=== PATIENT | female | born 1990 | race Caucasian/White ===

== ENCOUNTER 2017-05-20 00:49 | Emergency (ER) | payer OTHER, SELFPAY ==
[~2017-05-20] VITALS: Ht 165.1 cm; Wt 66.0 kg
[2017-05-20 00:55] VITALS: BP 136/72
[2017-05-20] MEDS ORDERED: ZITHTAB PO (01:53)
[2017-05-20] MEDS ORDERED: GUAI100S7 PO (01:53)
[2017-05-20] MEDS ORDERED: IBUP-1022 PO (01:53)
[2017-05-20] MEDS ORDERED: ACETAMINOPHEN 325 MG TAB PO ONE (02:00)
[2017-05-20] MEDS ORDERED: IBUPROFEN 600 MG TAB PO ONE (02:00)
[2017-05-20] MEDS ORDERED: guaiFENesin SYRUP 200 MG/10 ML UDC PO ONE (02:00)
== END 2017-05-20 02:02 | disposition home or self-care (01) ==
LOC: M ED 00:49
DX: J06.9 Acute upper respiratory infection, unspecified (principal); H92.01 Otalgia, right ear; R51 Headache; F17.200 Nicotine dependence, unspecified, uncomplicated; Z88.2 Allergy status to sulfonamides

== ENCOUNTER 2018-12-09 20:37 | Emergency (ER) | payer OTHER ==
[~2018-12-09] VITALS: Ht 162.6 cm; Wt 93.5 kg
[2018-12-09 20:37] VITALS: BP 132/77
[~2018-12-09 20:37] MED LIST: GUAI100L6 PO; IBUP-1022 PO; ZITHTAB PO
[2018-12-09] MEDS ORDERED: AUGM875T28 PO (22:03)
[2018-12-09] MEDS ORDERED: AUGMENTIN 875 MG TAB PO ONE (22:15)
== END 2018-12-09 22:10 | disposition home or self-care (01) ==
LOC: M ED 20:37
DX: H66.002 Acute suppurative otitis media without spontaneous rupture of ear drum, left ear (principal); Z88.2 Allergy status to sulfonamides; F17.210 Nicotine dependence, cigarettes, uncomplicated

== ENCOUNTER 2019-09-28 11:35 | Emergency (ER) | payer OTHER ==
[~2019-09-28] VITALS: Ht 160 cm; Wt 87.9 kg
[~2019-09-28 11:35] MED LIST changes: +AUGM875T28 PO
[2019-09-28] MEDS ORDERED: TRAZ-252 (11:42)
[2019-09-28] MEDS ORDERED: BUPR150T3 (11:42)
[2019-09-28] MEDS ORDERED: ALL10TAB29 (11:42)
[2019-09-28 12:08] LABS: BASO # 0.1 10^3/uL (0.0-0.2); BASO % 0.6 % (0.0-1.0); EOS # 0.2 10^3/uL (0.0-0.5); EOS % 2.2 % (0.0-3.0); HEMATOCRIT 42.1 % (36.0-47.0); HEMOGLOBIN 13.6 g/dl (12.0-15.5); LYMPH # 2.9 10^3/uL (1.5-5.0); LYMPH % 33.6 % (24.0-44.0); MEAN CORPUSCULAR HEMOGLOBIN 31.4 pg (27.0-33.0); MEAN CORPUSCULAR HGB CONC 32.3 g/dl (32.0-36.5); MEAN CORPUSCULAR VOLUME 97.2 fl (80.0-96.0); MONO # 0.8 10^3/uL (0.0-0.8); MONO % 9.8 % (0.0-5.0); NEUTROPHILS # 4.6 10^3/uL (1.5-8.5); NEUTROPHILS % 53.6 % (36.0-66.0); PLATELET COUNT, AUTOMATED 272 10^3/uL (150-450); RED BLOOD COUNT 4.33 10^6/uL (4.00-5.40); WHITE BLOOD COUNT 8.5 10^3/uL (4.0-10.0)
[2019-09-28 12:38] LABS: ALBUMIN 3.7 GM/DL (3.2-5.2); ALT/SGPT 16 U/L (12-78); BILIRUBIN,DIRECT 0.1 MG/DL (0.0-0.2); BILIRUBIN,TOTAL 0.2 MG/DL (0.2-1.0); BLOOD UREA NITROGEN 14 MG/DL (7-18); CALCIUM LEVEL 8.9 MG/DL (8.5-10.1); CARBON DIOXIDE LEVEL 27 MEQ/L (21-32); CHLORIDE LEVEL 108 MEQ/L (98-107); CREATININE FOR GFR 0.77 MG/DL (0.55-1.30); GLOMERULAR FILTRATION RATE > 60.0 (>60); GLUCOSE, FASTING 98 MG/DL (70-100); LIPASE 161 U/L (73-393); POTASSIUM SERUM 4.3 MEQ/L (3.5-5.1); SODIUM LEVEL 141 MEQ/L (136-145); TOTAL PROTEIN 6.7 GM/DL (6.4-8.2)
[2019-09-28] MEDS ORDERED: IBUPROFEN 800 MG TAB PO ONE (14:15)
[2019-09-28 16:25] VITALS: BP 156/81
--- NOTE | 2019-09-28 17:48 | REP ---
PELVIC ULTRASOUND: Real-time sonographic evaluation of the pelvis was performed utilizing transabdominal and endovaginal technique. The bladder measures 4.2 x 2.7 x 4.9 cm. The uterus measures 8.1 x 3.6 x 5.1 cm. Endometrial thickness is 3 mm. There is no endometrial fluid collection. IUD is seen in the endometrial canal. Right ovary measures 3.1 x 1.8 x 2.2 cm and left ovary 4.1 x 3.0 x 3.7 cm. Two dominant follicles in the left ovary measure up to 1.9 cm maximally. There is no torsion of either ovary with duplex Doppler evaluation. No free fluid is seen. IMPRESSION: IUD is seen in the endometrial canal. Right ovary is normal. Left ovary contains two dominant follicles 1.9 cm in maximum diameter. No torsion or free fluid. Electronically Signed by Jerome Gregory MD 09/28/2019 07:24 P
== END 2019-09-28 16:26 | disposition home or self-care (01) ==
LOC: M ED 12:54
DX: N83.02 Follicular cyst of left ovary (principal); R11.0 Nausea; F41.9 Anxiety disorder, unspecified; F32.9 Major depressive disorder, single episode, unspecified; F15.10 Other stimulant abuse, uncomplicated; Z87.442 Personal history of urinary calculi; F17.200 Nicotine dependence, unspecified, uncomplicated; Z97.5 Presence of (intrauterine) contraceptive device; Z88.2 Allergy status to sulfonamides; Z79.899 Other long term (current) drug therapy

== ENCOUNTER 2020-02-02 11:09 | Emergency (ER) | payer OTHER ==
[~2020-02-02] VITALS: Ht 162.6 cm; Wt 84.1 kg
[~2020-02-02 11:09] MED LIST changes: +ALL10TAB29; +BUPR150T3; +TRAZ-252
[2020-02-02] MEDS ORDERED: IBUPROFEN 600 MG TAB PO ONE (12:45)
[2020-02-02 12:52] VITALS: BP 161/86
--- NOTE | 2020-02-02 13:48 | REP ---
LEFT KNEE, FIVE VIEWS: There is no evidence of an acute fracture, dislocation, or intrinsic bone disease. IMPRESSION: No fracture or dislocation. Electronically Signed by Jerome Gregory MD 02/02/2020 04:44 P
--- NOTE | 2020-02-02 13:48 | REP ---
REASON: Trauma. Limited plain film examination of the mandible shows no gross fracture. IMPRESSION: Negative limited plain film exam. CT is more sensitive and should be considered. Electronically Signed by Chris Mullins DO 02/02/2020 01:53 P
== END 2020-02-02 12:53 | disposition home or self-care (01) ==
LOC: EDBD 11:09 → M ED 11:09
DX: S00.81XA Abrasion of other part of head, initial encounter (principal); S80.812A Abrasion, left lower leg, initial encounter; V13.4XXA Pedal cycle driver injured in collision with car, pick-up truck or van in traffic accident, initial encounter; Y92.89 Other specified places as the place of occurrence of the external cause; Z87.891 Personal history of nicotine dependence; Z88.2 Allergy status to sulfonamides

== ENCOUNTER → 2020-03-21 | Outpatient (REF) | payer OTHER ==
[~2020-03-21] MED LIST changes: +ALL10TAB2 PO; -ALL10TAB29; +BUPR1TAB53 PO; +CETI-24; +FLUT1INH INH; +SUMA50TA2 PO; +TRAZ1TAB14 PO
[2020-03-21 11:52] LABS: BASO # 0.1 10^3/uL (0.0-0.2); BASO % 0.7 % (0.0-1.0); EOS # 0.1 10^3/uL (0.0-0.5); EOS % 1.1 % (0.0-3.0); HEMATOCRIT 43.7 % (36.0-47.0); HEMOGLOBIN 14.3 g/dl (12.0-15.5); LYMPH # 2.4 10^3/uL (1.5-5.0); LYMPH % 29.2 % (24.0-44.0); MEAN CORPUSCULAR HEMOGLOBIN 31.2 pg (27.0-33.0); MEAN CORPUSCULAR HGB CONC 32.7 g/dl (32.0-36.5); MEAN CORPUSCULAR VOLUME 95.4 fl (80.0-96.0); MONO # 0.7 10^3/uL (0.0-0.8); MONO % 8.5 % (0.0-5.0); NEUTROPHILS # 4.9 10^3/uL (1.5-8.5); NEUTROPHILS % 60.3 % (36.0-66.0); PLATELET COUNT, AUTOMATED 277 10^3/uL (150-450); RED BLOOD COUNT 4.58 10^6/uL (4.00-5.40); WHITE BLOOD COUNT 8.2 10^3/uL (4.0-10.0)
[2020-03-21 12:53] LABS: ALBUMIN 3.9 GM/DL (3.2-5.2); ALT/SGPT 24 U/L (12-78); BILIRUBIN,TOTAL 0.3 MG/DL (0.2-1.0); BLOOD UREA NITROGEN 10 MG/DL (7-18); CALCIUM LEVEL 8.9 MG/DL (8.5-10.1); CARBON DIOXIDE LEVEL 27 MEQ/L (21-32); CHLORIDE LEVEL 107 MEQ/L (98-107); CHOLESTEROL LEVEL 147 MG/DL (<200); GLOMERULAR FILTRATION RATE > 60.0 (>60); GLUCOSE, FASTING 95 MG/DL (70-100); HDL CHOLESTEROL 50 MG/DL (>40); LDL CHOLESTEROL 84 MG/DL (<100); NON-HDL-C 97 MG/DL; POTASSIUM SERUM 4.9 MEQ/L (3.5-5.1); SODIUM LEVEL 138 MEQ/L (136-145); THYROID STIMULATING HORMONE 0.671 uIU/ML (0.358-3.740); TOTAL PROTEIN 7.5 GM/DL (6.4-8.2); TRIGLYCERIDES LEVEL 66 MG/DL (<150)
[2020-03-21 19:01] LABS: HEMOGLOBIN A1c 6.1 %
== END ==
LOC: M SFHCPLAZ 10:00
PROVIDERS: ATTEND Physician Assistant Medical
DX: E66.01 Morbid (severe) obesity due to excess calories (principal); Z87.891 Personal history of nicotine dependence; J45.30 Mild persistent asthma, uncomplicated; Z13.220 Encounter for screening for lipoid disorders

== ENCOUNTER → 2020-04-18 | Outpatient (REF) | payer OTHER ==
[~2020-04-18] MED LIST changes: +ALL10TAB29; -CETI-24
[2020-05-15 13:47] LABS: APPEARANCE, URINE CLEAR (CLEAR); BACTERIA, URINE AUTO NEGATIVE (NEGATIVE); BILIRUBIN, URINE AUTO NEGATIVE (NEGATIVE); BLOOD, URINE BLOOD NEGATIVE (NEGATIVE); COLOR, URINE STRAW (YELLOW); GLUCOSE, URINE (UA) AUTO NEGATIVE (NEGATIVE); KETONE, URINE AUTO NEGATIVE (NEGATIVE); LEUKOCYTE ESTERASE, URINE AUTO NEGATIVE (NEGATIVE); NITRITE, URINE AUTO NEGATIVE (NEGATIVE); PROTEIN, URINE AUTO NEGATIVE (NEGATIVE); RBC, URINE AUTO 1 /HPF (0-3); SQUAMOUS EPITHELIAL CELL UR AU 0 /HPF (0-6); UROBILINOGEN, URINE AUTO 0.2 mg/dL (0.0-2.0); WBC, URINE AUTO 2 /HPF (0-3)
[2020-05-15 20:21] LABS: BASO # 0.1 10^3/uL (0.0-0.2); BASO % 0.6 % (0.0-1.0); EOS # 0.1 10^3/uL (0.0-0.5); HEMATOCRIT 39.5 % (36.0-47.0); HEMOGLOBIN 13.1 g/dl (12.0-15.5); LYMPH # 2.7 10^3/uL (1.5-5.0); MEAN CORPUSCULAR HEMOGLOBIN 31.2 pg (27.0-33.0); MEAN CORPUSCULAR HGB CONC 33.2 g/dl (32.0-36.5); MONO # 0.9 10^3/uL (0.0-0.8); MONO % 8.8 % (0.0-5.0); NEUTROPHILS # 6.2 10^3/uL (1.5-8.5); NEUTROPHILS % 62.2 % (36.0-66.0); PLATELET COUNT, AUTOMATED 237 10^3/uL (150-450); WHITE BLOOD COUNT 9.9 10^3/uL (4.0-10.0)
== END ==
LOC: M SFHCPLAZ 12:32
PROVIDERS: ATTEND Physician Assistant Medical
DX: Z00.00 Encounter for general adult medical examination without abnormal findings (principal)

== ENCOUNTER 2020-05-08 11:52 | Day surgery (SDC) | payer OTHER ==
[~2020-05-08] VITALS: Ht 165.1 cm; Wt 100.2 kg
[~2020-05-08 11:52] MED LIST changes: -ALL10TAB29; +CETI-24
[2020-05-08] MEDS ORDERED: LIDOCAINE 2% 100MG/5ML SDV (FOR ANES.) As Ordered ONE (14:05)
[2020-05-08] MEDS ORDERED: propofoL 200 MG/20 ML VIAL As Ordered ONE ×2 (14:05→14:07)
[2020-05-08 14:53] VITALS: BP 132/60
--- NOTE | 2020-05-24 11:30 | ROOR ---
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 Procedure: Pre-Anesthesia Assessment: - The heart rate, respiratory rate, oxygen saturations, blood pressure, adequacy of pulmonary ventilation, and response to care were monitored throughout the procedure. The Colonoscope was introduced through the anus and advanced to the terminal ileum. The colonoscopy was performed without difficulty. The patient tolerated the procedure well. The quality of the bowel preparation was excellent. Findings: The perianal and digital rectal examinations were normal. Non-bleeding internal hemorrhoids were found during retroflexion. The hemorrhoids were small and Grade I (internal hemorrhoids that do not prolapse). No other significant abnormalities were identified in a careful examination of the remainder of the colon. The terminal ileum appeared normal. Biopsies for histology were taken with a cold forceps from the ascending colon, transverse colon and descending colon for evaluation of microscopic colitis. The exam was otherwise without abnormality. Impression: - Non-bleeding internal hemorrhoids. - The examined portion of the ileum was normal. - The examination was otherwise normal. - Biopsies were taken with a cold forceps from the ascending colon, transverse colon and descending colon for evaluation of microscopic colitis. - The exam was otherwise normal to the cecum. Recommendation: - Patient has a contact number available for emergencies. The signs and symptoms of potential delayed complications were discussed with the patient. Return to normal activities tomorrow. Written discharge instructions were provided to the patient. - High fiber diet. - Discharge patient to home. - Continue present medications. - Await pathology results. - Telephone GI clinic for pathology results in 1 week. - Repeat colonoscopy at age 52 for screening purposes. - Return to referring physician. - The findings and recommendations were discussed with the patient. Jacob Peña MD Jacob Peña MD 05/08/2020 2:20:32 PM Number of Addenda: 0 Note Initiated On: 05/08/2020 12:20 PM Estimated Blood Loss: Estimated blood loss: none.
== END 2020-05-08 14:54 | disposition home or self-care (01) ==
LOC: M OPP 11:52
PROVIDERS: ATTEND Internal Medicine Gastroenterology
DX: K64.0 First degree hemorrhoids (principal); R10.30 Lower abdominal pain, unspecified; R19.7 Diarrhea, unspecified; K62.5 Hemorrhage of anus and rectum; K21.9 Gastro-esophageal reflux disease without esophagitis; Z79.899 Other long term (current) drug therapy; Z88.2 Allergy status to sulfonamides; Z91.040 Latex allergy status; Z87.891 Personal history of nicotine dependence

== ENCOUNTER 2021-09-23 10:40 | Observation (INO) | payer OTHER ==
[~2021-09-23] VITALS: Ht 165.1 cm; Wt 89.5 kg
[~2021-09-23 10:40] MED LIST changes: +BUPR150T12; -BUPR150T3
[2021-09-23] MEDS ORDERED: NS 1,000 ML IV SCH (13:00)
[2021-09-23] MEDS ORDERED: ACETAMINOPHEN 500 MG TAB PO ONE (13:10)
[2021-09-23] MEDS ORDERED: LIDOCAINE 1% MDV 20ML VIAL IM ONE (13:40)
[2021-09-23] MEDS ORDERED: PIPERACILLIN/TAZOBACTAM SOD 3.375 GM in D5W MINI-BAG PLUS 50 ML IV ONE (14:20)
[2021-09-23 14:37] LABS: BASO # 0.1 10^3/uL (0.0-0.2); BASO % 0.5 % (0.0-1.0); EOS % 0.3 % (0.0-3.0); HEMOGLOBIN 12.6 g/dl (12.0-15.5); LYMPH # 2.1 10^3/uL (1.5-5.0); LYMPH % 17.9 % (24.0-44.0); MEAN CORPUSCULAR HGB CONC 34.1 g/dl (32.0-36.5); MEAN CORPUSCULAR VOLUME 90.9 fl (80.0-96.0); MONO # 0.7 10^3/uL (0.0-0.8); MONO % 6.1 % (2.0-8.0); NEUTROPHILS # 8.7 10^3/uL (1.5-8.5); NEUTROPHILS % 74.7 % (36.0-66.0); PLATELET COUNT, AUTOMATED 362 10^3/uL (150-450); RED BLOOD COUNT 4.07 10^6/uL (4.00-5.40); WHITE BLOOD COUNT 11.6 10^3/uL (4.0-10.0)
[2021-09-23 14:52] LABS: RSV AMPLIFICATION NEGATIVE (NEGATIVE)
[2021-09-23 15:21] LABS: ALBUMIN 3.4 GM/DL (3.2-5.2); ALT/SGPT 19 U/L (12-78); BILIRUBIN,DIRECT 0.1 MG/DL (0.0-0.2); BILIRUBIN,TOTAL 0.4 MG/DL (0.2-1.0); BLOOD UREA NITROGEN 6 MG/DL (7-18); CALCIUM LEVEL 8.9 MG/DL (8.5-10.1); CARBON DIOXIDE LEVEL 24 MEQ/L (21-32); CHLORIDE LEVEL 105 MEQ/L (98-107); CREATININE FOR GFR 0.62 MG/DL (0.55-1.30); GLOMERULAR FILTRATION RATE > 60.0 (>60); GLUCOSE, FASTING 86 MG/DL (70-100); HCG, SERUM QUANTITATIVE 48482 MIU/ML; POTASSIUM SERUM 4.2 MEQ/L (3.5-5.1); SODIUM LEVEL 137 MEQ/L (136-145); TOTAL PROTEIN 7.4 GM/DL (6.4-8.2)
[2021-09-23] MEDS ORDERED: HOME MED LIST COMPLETE! XX SCH (15:45)
[2021-09-23] MEDS ORDERED: ONDANSETRON 4MG/2ML VIAL IV ONE (16:35)
[2021-09-23] MEDS ORDERED: MORPHINE 2 MG/ML 1ML VIAL (J2270) IV ONE (16:35)
[2021-09-23] MEDS ORDERED: ALBUTEROL 90 MCG/ACT 8GM HFA INHALER INH PRN (17:05)
[2021-09-23 18:44] VITALS: BP 154/55
[2021-09-23] MEDS: ACETAMINOPHEN TAB 650MG DOSE (2X325MG) PO PRN ×2 (18:50→22:50)
[2021-09-23] MEDS: ceFAZolin SOD 1 GM in D5W MINI-BAG PLUS 50 ML IV SCH (21:13)
[2021-09-23 22:44] VITALS: BP 123/84
[2021-09-24 02:00] VITALS: BP 99/61
[2021-09-24] MEDS: ceFAZolin SOD 1 GM in D5W MINI-BAG PLUS 50 ML IV SCH ×3 (05:49→21:37)
[2021-09-24 06:00] VITALS: BP 116/70
[2021-09-24 06:14] LABS: HEMATOCRIT 33.9 % (36.0-47.0); HEMOGLOBIN 11.4 g/dl (12.0-15.5); MEAN CORPUSCULAR HEMOGLOBIN 30.8 pg (27.0-33.0); MEAN CORPUSCULAR HGB CONC 33.6 g/dl (32.0-36.5); MEAN CORPUSCULAR VOLUME 91.6 fl (80.0-96.0); PLATELET COUNT, AUTOMATED 332 10^3/uL (150-450); WHITE BLOOD COUNT 9.2 10^3/uL (4.0-10.0)
[2021-09-24 06:29] LABS: BLOOD UREA NITROGEN 8 MG/DL (7-18); CALCIUM LEVEL 8.3 MG/DL (8.5-10.1); CARBON DIOXIDE LEVEL 24 MEQ/L (21-32); CHLORIDE LEVEL 108 MEQ/L (98-107); CREATININE FOR GFR 0.56 MG/DL (0.55-1.30); GLOMERULAR FILTRATION RATE > 60.0 (>60); GLUCOSE, FASTING 90 MG/DL (70-100); POTASSIUM SERUM 3.7 MEQ/L (3.5-5.1); SODIUM LEVEL 140 MEQ/L (136-145)
[2021-09-24 10:00] VITALS: BP 118/71
[2021-09-24] MEDS: ACETAMINOPHEN TAB 650MG DOSE (2X325MG) PO PRN ×2 (12:22→19:33)
[2021-09-24 14:00] VITALS: BP 118/70
[2021-09-24 18:00] VITALS: BP 115/67
[2021-09-24] MEDS ORDERED: ONDANSETRON 4 MG ORAL DISINTEGRATING TAB PO PRN (19:50)
[2021-09-24 22:00] VITALS: BP 133/85
[2021-09-25 02:00] VITALS: BP 113/68
[2021-09-25] MEDS: ceFAZolin SOD 1 GM in D5W MINI-BAG PLUS 50 ML IV SCH (05:50)
[2021-09-25 06:00] VITALS: BP 111/66
[2021-09-25] MEDS: ACETAMINOPHEN TAB 650MG DOSE (2X325MG) PO PRN ×2 (06:00→10:44)
[2021-09-25 06:48] LABS: HEMATOCRIT 35.8 % (36.0-47.0); HEMOGLOBIN 12.1 g/dl (12.0-15.5); MEAN CORPUSCULAR HEMOGLOBIN 30.6 pg (27.0-33.0); MEAN CORPUSCULAR HGB CONC 33.8 g/dl (32.0-36.5); MEAN CORPUSCULAR VOLUME 90.6 fl (80.0-96.0); PLATELET COUNT, AUTOMATED 337 10^3/uL (150-450); RED BLOOD COUNT 3.95 10^6/uL (4.00-5.40); WHITE BLOOD COUNT 8.6 10^3/uL (4.0-10.0)
[2021-09-25 07:05] LABS: BLOOD UREA NITROGEN 7 MG/DL (7-18); CALCIUM LEVEL 8.8 MG/DL (8.5-10.1); CARBON DIOXIDE LEVEL 24 MEQ/L (21-32); CHLORIDE LEVEL 106 MEQ/L (98-107); CREATININE FOR GFR 0.58 MG/DL (0.55-1.30); GLOMERULAR FILTRATION RATE > 60.0 (>60); GLUCOSE, FASTING 101 MG/DL (70-100); POTASSIUM SERUM 3.9 MEQ/L (3.5-5.1); SODIUM LEVEL 139 MEQ/L (136-145)
[2021-09-25] MEDS ORDERED: CLIN150C17 PO (09:47)
[2021-09-25] MEDS ORDERED: MULTTAB20 PO (09:48)
== END 2021-09-25 11:53 | disposition home or self-care (01) ==
LOC: M ED 10:40 → M ED INP 10:41 → ENRESERV 17:15 → M MSPAV 18:14
PROVIDERS: ADMIT Family Medicine; ATTEND Internal Medicine
DX: N61.0 Mastitis without abscess (principal); A49.01 Methicillin susceptible Staphylococcus aureus infection, unspecified site; Z33.1 Pregnant state, incidental; J45.909 Unspecified asthma, uncomplicated; F31.9 Bipolar disorder, unspecified; F15.21 Other stimulant dependence, in remission; Z79.2 Long term (current) use of antibiotics; Z91.040 Latex allergy status; Z88.2 Allergy status to sulfonamides; Z87.891 Personal history of nicotine dependence
CPT/HCPCS: 36415; 76642; 80048; 80076; 83605; 84702; 85025; 85027; 87040; 87070; 87077; 87186; 87205; 87631; 96365; 96366; 96375; 96376; 99284; J0690; J2270; J2405; J2543; Q0162

== ENCOUNTER → 2022-05-02 | Outpatient (CLI) | payer MEDICAID ==
[~2022-05-02] MED LIST changes: +CLIN150C17 PO; +MULTTAB20 PO
== END ==
LOC: M OUTALCOH 07:24
PROVIDERS: ATTEND Psychiatry & Neurology Psychiatry
DX: Z13.39 Encounter for screening examination for other mental health and behavioral disorders (principal)

== ENCOUNTER 2022-06-13 09:00 | Outpatient (RCR) | payer MEDICAID | END 2022-06-14 | LOC: M OUTALCOH 09:00 | PROVIDERS: ATTEND Psychiatry & Neurology Psychiatry | DX: F12.10 Cannabis abuse, uncomplicated (principal); Z72.0 Tobacco use ==

== ENCOUNTER 2022-12-07 12:33 | Inpatient (IN) | payer MEDICAID, OTHER ==
[~2022-12-07] VITALS: Ht 165.1 cm; Wt 74.3 kg
[2022-12-07] MEDS ORDERED: ONDANSETRON 4MG 2ML VIAL IV ONE (13:25)
[2022-12-07] MEDS ORDERED: MORPHINE 4 MG/ML 1ML VIAL IV PRN (13:25)
[2022-12-07] MEDS ORDERED: LIDOCAINE 1% MDV 20ML VIAL IM ONE (13:25)
[2022-12-07 14:39] LABS: RSV AMPLIFICATION NEGATIVE (NEGATIVE)
[2022-12-07] MEDS ORDERED: VANCOMYCIN HCL 1,000 MG, VIAL MATE ADAPTER 1 EACH in NS 250 ML IV STA (14:48)
[2022-12-07] MEDS ORDERED: ACET-897 PO ×2 (14:56→17:57)
[2022-12-07] MEDS ORDERED: CLIN150C17 PO (14:56)
[2022-12-07] MEDS ORDERED: IBUP80TA PO (14:56)
[2022-12-07] MEDS ORDERED: NS 1,000 ML IV ONE (15:45)
[2022-12-07 15:56] LABS: BASO % 0.6 % (0.0-1.0); EOS # 0.1 10^3/uL (0.0-0.5); EOS % 0.9 % (0.0-3.0); HEMOGLOBIN 11.5 g/dl (12.0-15.5); LYMPH % 28.4 % (24.0-44.0); MEAN CORPUSCULAR HEMOGLOBIN 28.5 pg (27.0-33.0); MEAN CORPUSCULAR HGB CONC 32.9 g/dl (32.0-36.5); MEAN CORPUSCULAR VOLUME 86.6 fl (80.0-96.0); MONO # 0.4 10^3/uL (0.0-0.8); MONO % 6.1 % (2.0-8.0); NEUTROPHILS # 4.5 10^3/uL (1.5-8.5); NEUTROPHILS % 63.7 % (36.0-66.0); PLATELET COUNT, AUTOMATED 353 10^3/uL (150-450); RED BLOOD COUNT 4.04 10^6/uL (4.00-5.40)
[2022-12-07 16:17] LABS: ALBUMIN 3.2 G/DL (3.2-5.2); ALKALINE PHOSPHATASE 90 U/L (46-116); ALT/SGPT 18 U/L (7.0-40); AST/SGOT 15 U/L (<34); BILIRUBIN,TOTAL 0.4 MG/DL (0.3-1.2); BLOOD UREA NITROGEN 10 MG/DL (9-23); CALCIUM LEVEL 8.5 MG/DL (8.5-10.1); CARBON DIOXIDE LEVEL 27 MMOL/L (20-31); CHLORIDE LEVEL 105 MMOL/L (98-107); CREATININE FOR GFR 0.43 MG/DL (0.55-1.30); GLOMERULAR FILTRATION RATE > 60.0 (>60); GLUCOSE, FASTING 114 MG/DL (60-100); POTASSIUM SERUM 4.4 MMOL/L (3.5-5.1); SODIUM LEVEL 138 MMOL/L (136-145); TOTAL PROTEIN 6.2 G/DL (5.7-8.2)
[2022-12-07 16:25] LABS: ERYTHROCYTE SEDIMENTATION RATE 56 mm/hr (0-20)
[2022-12-07 16:43] LABS: HCG, SERUM QUALITATIVE NEGATIVE (NEGATIVE)
[2022-12-07] MEDS ORDERED: MORPHINE 2 MG/ML 1ML VIAL IV PRN (17:15)
[2022-12-07] MEDS ORDERED: BUPR1FIL SL (17:57)
[2022-12-07] MEDS ORDERED: VITMTA PO (17:57)
[2022-12-07] MEDS ORDERED: IBUP200C25 PO (17:57)
[2022-12-07] MEDS ORDERED: HOME MED LIST COMPLETE! XX SCH (18:00)
[2022-12-07] MEDS ORDERED: ONDANSETRON 4MG 2ML VIAL IV PRN (18:10)
[2022-12-07] MEDS: PIPERACILLIN/TAZOBACTAM SOD 3.375 GM in D5W MINI-BAG PLUS 50 ML IV SCH ×2 (18:43→23:44)
[2022-12-07] MEDS: LACTOBACILLUS ACIDOPHILUS CAP (BACID) PO SCH (20:30)
[2022-12-07] MEDS: NS 1,000 ML IV SCH (20:31)
[2022-12-07] MEDS: VANCOMYCIN HCL 1,000 MG, VIAL MATE ADAPTER 1 EACH in NS 250 ML IV SCH (21:48)
[2022-12-07 22:00] VITALS: BP 123/74
[2022-12-08] MEDS: NS 1,000 ML IV SCH (04:10)
[2022-12-08] MEDS: PIPERACILLIN/TAZOBACTAM SOD 3.375 GM in D5W MINI-BAG PLUS 50 ML IV SCH ×4 (05:22→23:52)
[2022-12-08 06:00] VITALS: BP 131/67
[2022-12-08] MEDS: MORPHINE 2 MG/ML 1ML VIAL IV PRN ×2 (06:13→12:13)
[2022-12-08] MEDS: VANCOMYCIN HCL 1,000 MG, VIAL MATE ADAPTER 1 EACH in NS 250 ML IV SCH ×3 (06:25→22:09)
[2022-12-08 06:28] LABS: HEMOGLOBIN 11.8 g/dl (12.0-15.5); MEAN CORPUSCULAR HEMOGLOBIN 28.2 pg (27.0-33.0); MEAN CORPUSCULAR HGB CONC 32.8 g/dl (32.0-36.5); MEAN CORPUSCULAR VOLUME 86.1 fl (80.0-96.0); RED BLOOD COUNT 4.18 10^6/uL (4.00-5.40); WHITE BLOOD COUNT 4.4 10^3/uL (4.0-10.0)
[2022-12-08 07:04] LABS: ALBUMIN 2.7 G/DL (3.2-5.2); ALKALINE PHOSPHATASE 88 U/L (46-116); ALT/SGPT 14 U/L (7.0-40); AST/SGOT 12 U/L (<34); BILIRUBIN,TOTAL 0.2 MG/DL (0.3-1.2); BLOOD UREA NITROGEN 9 MG/DL (9-23); CARBON DIOXIDE LEVEL 25 MMOL/L (20-31); CHLORIDE LEVEL 108 MMOL/L (98-107); CREATININE FOR GFR 0.52 MG/DL (0.55-1.30); GLOMERULAR FILTRATION RATE > 60.0 (>60); GLUCOSE, FASTING 99 MG/DL (60-100); POTASSIUM SERUM 4.2 MMOL/L (3.5-5.1); SODIUM LEVEL 139 MMOL/L (136-145); TOTAL PROTEIN 5.5 G/DL (5.7-8.2)
[2022-12-08 07:58] LABS: INR 0.94; PROTHROMBIN TIME 12.8 SECONDS (12.5-14.5)
[2022-12-08 07:59] LABS: PARTIAL THROMBOPLASTIN TIME 32.5 SECONDS (24.8-34.2)
[2022-12-08] MEDS: LACTOBACILLUS ACIDOPHILUS CAP (BACID) PO SCH ×2 (08:47→18:19)
[2022-12-08] MEDS: ENOXAPARIN 40MG/0.4ML SYRINGE (J1650 PER 10MG) SC SCH (08:48)
[2022-12-08] MEDS: ACETAMINOPHEN TAB 650MG DOSE (2X325MG) PO PRN ×2 (08:51→18:19)
[2022-12-08 14:00] VITALS: BP 114/63
[2022-12-08 21:36] VITALS: BP 128/94
[2022-12-09] MEDS: ACETAMINOPHEN TAB 650MG DOSE (2X325MG) PO PRN ×2 (03:37→08:11)
[2022-12-09] MEDS: PIPERACILLIN/TAZOBACTAM SOD 3.375 GM in D5W MINI-BAG PLUS 50 ML IV SCH (05:26)
[2022-12-09 06:00] VITALS: BP 111/71
[2022-12-09 06:14] LABS: HEMATOCRIT 32.3 % (36.0-47.0); HEMOGLOBIN 10.4 g/dl (12.0-15.5); MEAN CORPUSCULAR HEMOGLOBIN 27.9 pg (27.0-33.0); MEAN CORPUSCULAR HGB CONC 32.2 g/dl (32.0-36.5); MEAN CORPUSCULAR VOLUME 86.6 fl (80.0-96.0); PLATELET COUNT, AUTOMATED 319 10^3/uL (150-450); RED BLOOD COUNT 3.73 10^6/uL (4.00-5.40); WHITE BLOOD COUNT 4.4 10^3/uL (4.0-10.0)
[2022-12-09] MEDS: VANCOMYCIN HCL 1,000 MG, VIAL MATE ADAPTER 1 EACH in NS 250 ML IV SCH (06:35)
[2022-12-09 06:51] LABS: ALBUMIN 2.9 G/DL (3.2-5.2); ALKALINE PHOSPHATASE 113 U/L (46-116); ALT/SGPT 13 U/L (7.0-40); AST/SGOT 12 U/L (<34); BILIRUBIN,TOTAL < 0.2 MG/DL (0.3-1.2); BLOOD UREA NITROGEN 9 MG/DL (9-23); CALCIUM LEVEL 8.6 MG/DL (8.5-10.1); CARBON DIOXIDE LEVEL 26 MMOL/L (20-31); CHLORIDE LEVEL 107 MMOL/L (98-107); GLOMERULAR FILTRATION RATE > 60.0 (>60); GLUCOSE, FASTING 102 MG/DL (60-100); POTASSIUM SERUM 4.1 MMOL/L (3.5-5.1); SODIUM LEVEL 139 MMOL/L (136-145); TOTAL PROTEIN 5.8 G/DL (5.7-8.2)
[2022-12-09] MEDS ORDERED: ceFAZolin SOD 1 GM in D5W MINI-BAG PLUS 50 ML IV SCH (07:20)
[2022-12-09] MEDS: ENOXAPARIN 40MG/0.4ML SYRINGE (J1650 PER 10MG) SC SCH (08:11)
[2022-12-09] MEDS: LACTOBACILLUS ACIDOPHILUS CAP (BACID) PO SCH (08:11)
[2022-12-09] MEDS ORDERED: CEPH500C PO (09:04)
[2022-12-09] MEDS ORDERED: ACET1TAB55 PO (09:05)
[2022-12-09] MEDS ORDERED: ceFAZolin SOD 2 GM in IV 1 EA IV SCH (12:00)
== END 2022-12-09 09:15 | disposition left against medical advice (07) | DRG 383 ==
LOC: M ED 12:33 → M ED INP 17:15 → M MS5PR 21:00
PROVIDERS: ADMIT Internal Medicine; ATTEND Internal Medicine
DX: L03.115 Cellulitis of right lower limb (principal); F15.10 Other stimulant abuse, uncomplicated; R11.2 Nausea with vomiting, unspecified; F17.200 Nicotine dependence, unspecified, uncomplicated; L03.012 Cellulitis of left finger; B95.61 Methicillin susceptible Staphylococcus aureus infection as the cause of diseases classified elsewhere

== ENCOUNTER 2023-12-10 19:05 | Emergency (ER) | payer OTHER ==
[~2023-12-10] VITALS: Ht 165.1 cm; Wt 79.1 kg
[2023-12-10 19:05] VITALS: BP 112/54; TEMP 97.9; O2SAT 99
[~2023-12-10 19:05] MED LIST changes: +ACET-897 PO; +ACET1TAB55 PO; +BUPR1FIL SL; +CEPH500C PO; +IBUP200C25 PO; +IBUP80TA PO; +VITMTA PO
== END 2023-12-11 00:04 | disposition left against medical advice (07) ==
LOC: M ED 19:05
DX: Z53.21 Procedure and treatment not carried out due to patient leaving prior to being seen by health care provider (principal)

== ENCOUNTER 2024-06-12 21:00 | Emergency (ER) | payer OTHER ==
[~2024-06-12] VITALS: Ht 165.1 cm; Wt 76.5 kg
[2024-06-12 21:02] VITALS: O2SAT 99
[2024-06-12] MEDS: KETOROLAC 60MG 2ML VIAL IM ONE (23:10)
[2024-06-12 23:21] VITALS: BP 120/74; TEMP 97
== END 2024-06-12 23:23 | disposition home or self-care (01) ==
LOC: M ED 21:00
DX: S05.11XA Contusion of eyeball and orbital tissues, right eye, initial encounter (principal); Z88.2 Allergy status to sulfonamides; Z91.040 Latex allergy status; V00.131A Fall from skateboard, initial encounter; Y92.89 Other specified places as the place of occurrence of the external cause; Y93.89 Activity, other specified; Y99.9 Unspecified external cause status
CPT/HCPCS: 96372; 99283; J1885

== ENCOUNTER 2025-01-02 02:47 | Emergency (ER) | payer OTHER ==
[~2025-01-02] VITALS: Ht 165.1 cm; Wt 76.7 kg
[2025-01-02 02:50] VITALS: TEMP 98.1
[2025-01-02 06:45] VITALS: BP 106/70; O2SAT 99
[2025-01-02] MEDS: LIDOCAINE W/EPINEPHRINE 1% 20ML VIAL SC ONE (06:45)
== END 2025-01-02 07:18 | disposition home or self-care (01) ==
LOC: M ED 02:47
DX: S01.111A Laceration without foreign body of right eyelid and periocular area, initial encounter (principal); Y92.019 Unspecified place in single-family (private) house as the place of occurrence of the external cause; Y93.9 Activity, unspecified; Y99.9 Unspecified external cause status; W18.12XA Fall from or off toilet with subsequent striking against object, initial encounter; J45.909 Unspecified asthma, uncomplicated; F17.210 Nicotine dependence, cigarettes, uncomplicated; F19.10 Other psychoactive substance abuse, uncomplicated; Z88.2 Allergy status to sulfonamides; Z91.040 Latex allergy status

== ENCOUNTER 2025-05-01 11:08 | Emergency (ER) | payer OTHER ==
[~2025-05-01] VITALS: Ht 165.1 cm; Wt 71.4 kg
[~2025-05-01 11:08] MED LIST changes: +BUPR150T15 PO; -BUPR1TAB53 PO
[2025-05-01 11:20] VITALS: TEMP 97.3
[2025-05-01] MEDS: NS (Normal Saline) 0.9% 1,000 ML IV ONE (11:40)
[2025-05-01 11:47] LABS: VENOUS BASE EXCESS -0.1 (-2.0-2.0); VENOUS HCO3 27.2 MMOL/L (23.0-27.0); VENOUS O2 SATURATION 47.3 % (60.0-80.0); VENOUS PARTIAL PRESSURE CO2 55.4 mmHg (38.0-50.0); VENOUS PARTIAL PRESSURE O2 28.9 mmHg (30.0-50.0); VENOUS PH 7.309 UNITS (7.330-7.430); VENOUS STANDARD HCO3 23.2 MMOL/L; VENOUS TOTAL CO2 28.9 MMOL/L (24.0-28.0)
[2025-05-01 11:54] LABS: BASO # 0.1 10^3/uL (0.0-0.2); BASO % 0.7 % (0.0-1.0); EOS # 0.1 10^3/uL (0.0-0.5); EOS % 1.4 % (0.0-3.0); LYMPH # 3.7 10^3/uL (1.5-5.0); LYMPH % 38.7 % (24.0-44.0); MONO # 1.0 10^3/uL (0.0-0.8); MONO % 10.0 % (2.0-8.0); NEUTROPHILS # 4.7 10^3/uL (1.5-8.5); NEUTROPHILS % 49.0 % (36.0-66.0); PLATELET COUNT, AUTOMATED 434 10^3/uL (150-450)
[2025-05-01 12:15] LABS: ETHYL ALCOHOL (ETHANOL) < 0.003 % (0.000-0.010)
[2025-05-01 12:16] LABS: CPK CREATINE PHOSPHOKINASE 171 U/L (34-145)
[2025-05-01 12:17] LABS: ALT/SGPT 170 U/L (7.0-40); AST/SGOT 101 U/L (<34); CALCIUM LEVEL 9.6 MG/DL (8.5-10.1); CARBON DIOXIDE LEVEL 30 MMOL/L (20-31); CHLORIDE LEVEL 103 MMOL/L (98-107); CREATININE FOR GFR 0.91 MG/DL (0.55-1.30); GLOMERULAR FILTRATION RATE 85.4 (>60); POTASSIUM SERUM 3.2 MMOL/L (3.5-5.1); SALICYLATE LEVEL < 3.0 MG/DL (<30); SODIUM LEVEL 143 MMOL/L (136-145)
[2025-05-01 12:35] LABS: HCG, SERUM QUALITATIVE NEGATIVE (NEGATIVE)
[2025-05-01 13:47] LABS: HEPATITIS C VIRUS ABY INDEX 8.97 INDEX (<0.8)
[2025-05-01 14:30] VITALS: BP 107/69; O2SAT 97
[2025-05-01] MEDS: OVERDOSE RESCUE KIT XX SCH (15:14)
[2025-05-03 18:16] LABS: HCV RNA QUANTITATION 2720000.0 IU/mL (NOT DETECTED); HCV RNA log10 6.43 Log IU/mL (NOT DETECTED)
== END 2025-05-01 15:35 | disposition home or self-care (01) ==
LOC: EDBD 11:08 → M ED 11:08
DX: F19.10 Other psychoactive substance abuse, uncomplicated (principal); R74.01 Elevation of levels of liver transaminase levels; I45.81 Long QT syndrome; F41.9 Anxiety disorder, unspecified; F32.A Depression, unspecified; F17.210 Nicotine dependence, cigarettes, uncomplicated; F10.10 Alcohol abuse, uncomplicated; Z88.2 Allergy status to sulfonamides; Z91.040 Latex allergy status; Z79.2 Long term (current) use of antibiotics

== ENCOUNTER 2025-05-03 19:52 | Emergency (ER) | payer OTHER ==
[~2025-05-03] VITALS: Ht 165.1 cm; Wt 74.6 kg
[2025-05-03 22:06] VITALS: BP 135/89; TEMP 98.4; O2SAT 100
[2025-05-03] MEDS ORDERED: AMOX875T2 PO (22:07)
[2025-05-03] MEDS: AUGMENTIN 875 MG TAB PO ONE (22:17)
[2025-05-03] MEDS: dexAMETHasone 4 MG/ML 1 ML VIAL PO ONE (22:17)
[2025-05-03] MEDS: IBUPROFEN 600 MG TAB PO ONE (22:18)
== END 2025-05-03 22:25 | disposition home or self-care (01) ==
LOC: M ED 19:52
DX: K04.7 Periapical abscess without sinus (principal); K02.9 Dental caries, unspecified; J45.909 Unspecified asthma, uncomplicated; F17.210 Nicotine dependence, cigarettes, uncomplicated; F15.10 Other stimulant abuse, uncomplicated; Z88.2 Allergy status to sulfonamides; Z91.040 Latex allergy status; Z79.2 Long term (current) use of antibiotics
CPT/HCPCS: 70486; 99283; J1100